=== PATIENT | male | born 1970 | race Caucasian/White ===

== ENCOUNTER 2020-01-23 07:10 | Outpatient (CLI) | payer MEDICARE, OTHER ==
[2020-01-23 14:04] LABS: Hemoglobin 15.7 g/dL (14.0-18.0); Mean Corpuscular HGB CONC 34.1 g/dL (32.0-36.0); Mean Corpuscular Hemoglobin 29.4 pg (27.0-31.0); Mean Corpuscular Volume 86.1 fL (78.0-98.0); Mean Platelet Volume 7.7 fL (7.4-10.4); Platelet Count 177 thou/uL (130-400); RBC Distribution Width 13.5 % (11.5-14.5); Red Blood Cell (RBC) Count 5.33 mill/uL (4.70-6.10)
[2020-01-23 15:14] LABS: Chloride 106 mmol/L (98-107); Potassium 4.3 mmol/L (3.5-5.1); Sodium 141 mmol/L (136-145)
[2020-01-23 15:15] LABS: Calcium 9.2 mg/dL (7.8-10.44); Glucose 100 mg/dL (70-105)
[2020-01-23 15:17] LABS: Anion Gap 18 mmol/L (10-20); Carbon Dioxide 21 mmol/L (22-29)
[2020-01-23 15:18] LABS: Calc. Creatinine Clearance 0 mL/min (70-130); Estimated GFR-MDRD Greater than 90
[2020-01-23 15:19] LABS: BUN (Urea Nitrogen) 14 mg/dL (8.9-20.6)
--- NOTE | 2020-01-23 21:02 | EKG ---
Test Reason : Blood Pressure : / mmHG Vent. Rate : 085 BPM Atrial Rate : 085 BPM P-R Int : 156 ms QRS Dur : 082 ms QT Int : 360 ms P-R-T Axes : 058 011 024 degrees QTc Int : 428 ms Normal sinus rhythm Normal ECG Confirmed by Nina DE LA CRUZ ([id number]) on 01/23/2020 9:02:09 PM Referred By: KALA Confirmed By:Nina DE LA CRUZ
[2020-01-24 12:22] LABS: SARS-CoV-2 MS2 Positive; SARS-CoV-2 N Gene Negative; SARS-CoV-2 S Gene Negative; SARS-CoV-2 by NAA Not Detected (NotDetected); SARS-CoV-2 orf1ab Negative
== END 2020-01-23 07:11 | disposition home or self-care (01) ==
LOC: LABBT 07:10
PROVIDERS: ATTEND Neurological Surgery
DX: Z01.818 Encounter for other preprocedural examination (principal); M43.16 Spondylolisthesis, lumbar region; Z20.828 Contact with and (suspected) exposure to other viral communicable diseases
CPT/HCPCS: 80048; 85027; 93005; U0003; 87635; 93010

== ENCOUNTER 2020-01-28 06:21 | Day surgery (SDC) | payer MEDICARE, OTHER ==
[2020-01-24 10:22] VITALS: BMI 38.6
[2020-01-28] MEDS ORDERED: Midazolam HCl 2 mg/2 ml Vial ONE (07:14)
[2020-01-28] MEDS ORDERED: Famotidine/PF 20 mg/2ml Vial ONE (07:15)
[2020-01-28] MEDS ORDERED: Fentanyl 100 MCG/2 ML VIAL ONE ×4 (08:04→11:10)
[2020-01-28] MEDS ORDERED: Ondansetron PF 4 MG/2 ML Vial ONE (08:50)
[2020-01-28] MEDS ORDERED: PROPOFOL 200 MG/20 ML VIAL ONE (08:50)
[2020-01-28] MEDS ORDERED: Rocuronium Bromide 10 MG/ML (10ML VIAL) ONE (08:50)
[2020-01-28] MEDS ORDERED: Lidocaine 1% PF 5 ML VIAL ONE (08:50)
[2020-01-28] MEDS ORDERED: EPHEDRINE 25 MG/5 ML SYRINGE ONE (08:50)
[2020-01-28] MEDS ORDERED: Ketorolac Tromethamine 30 MG/ML VIAL ONE (08:50)
[2020-01-28] MEDS ORDERED: SUGAMMADEX SODIUM 200 MG/2 ML VIAL ONE (08:58)
[2020-01-28] MEDS ORDERED: Tamsulosin HCl 0.4 MG CAP ONE (10:46)
--- NOTE | 2020-01-28 18:30 | OP ---
DATE OF PROCEDURE: 01/28/2020 CAUSTIC MIXER: Idalmis Mayer PA-C PROCEDURE PERFORMED: Posterior lumbar laminectomy, L5-S1; posterolateral arthrodesis; pedicle screw instrumentation, L5-S1; demineralized bone matrix, local morselized autograft. DESCRIPTION OF PROCEDURE: The patient was brought to the operating room and intubated. He was rolled in a prone position on gel-filled chest rolls. An incision was made exposing L5 and S1 and the level was confirmed by x-ray. Procedure was extremely difficult given the patient's extremely large body habitus. Ultimately, we were able to perform a modest L5-S1 decompression and then placed pedicle screws at L5 and S1 bilaterally. The shelley was secured between the screws and connected by nuts, which were final tightened. The wound was then extensively irrigated and MAC hemostasis was secured. The positioning of the screws was confirmed with rotational x-ray and then shelley was secured between the screws. Distraction was placed at both sides and secured by nuts. Next, the posterolateral surfaces were prepared for the purpose of arthrodesis and a combination of demineralized bone matrix and local morselized autograft was laid over the lamina and posterolateral surfaces for the purpose of arthrodesis. The wound was then extensively irrigated and MAC hemostasis was secured. Vancomycin powder was applied and the wound was then closed in anatomic layers. Job ID: [id number]
== END 2020-01-28 12:33 | disposition home or self-care (01) ==
LOC: SDC 06:21
PROVIDERS: ATTEND Neurological Surgery
PROC: 0SG30J1 Fusion of Lumbosacral Joint with Synthetic Substitute, Posterior Approach, Posterior Column, Open Approach (ICD-10-PCS; principal; 2020-01-28)
DX: M43.17 Spondylolisthesis, lumbosacral region (principal); M48.061 Spinal stenosis, lumbar region without neurogenic claudication; E11.9 Type 2 diabetes mellitus without complications; I10 Essential (primary) hypertension; E78.5 Hyperlipidemia, unspecified; F43.10 Post-traumatic stress disorder, unspecified; J45.909 Unspecified asthma, uncomplicated; G47.30 Sleep apnea, unspecified; F32.9 Major depressive disorder, single episode, unspecified; F41.9 Anxiety disorder, unspecified; Z87.891 Personal history of nicotine dependence; Z79.4 Long term (current) use of insulin; Z79.899 Other long term (current) drug therapy
CPT/HCPCS: 36416; 76000; C1713; C1768; J0690; J1885; J2250; J2405; J2704; J3010; J3370; S0028

== ENCOUNTER 2020-02-12 12:35 | Outpatient (CLI) | payer MEDICARE, OTHER ==
--- NOTE | 2020-02-12 13:09 | RAD ---
2 views of the lumbar spine: 02/12/2020 COMPARISON: None HISTORY: Spondylolisthesis, prior lumbar spine surgery FINDINGS: Anterolisthesis at the L5-S1 level noted, measuring 1.5 cm. Bilateral L5 and S1 pedicle scr ews are present with vertically oriented interlocking rods. Partially visualized bilateral hip arthroplasties. Minimal retrolisthesis noted at L4-5 measuring 4 mm. Multilevel lower lumbar spine fa cet hypertrophy present. Disc space narrowing with anterior osteophyte formation noted at T12-L1. IMPRESSION: Postoperative and degenerative changes within the lumbar spine as detailed above.
== END 2020-02-12 12:36 | disposition home or self-care (01) ==
LOC: TBSIIMAG 12:35
PROVIDERS: ATTEND Neurological Surgery
DX: M43.16 Spondylolisthesis, lumbar region (principal); M47.816 Spondylosis without myelopathy or radiculopathy, lumbar region; Z98.890 Other specified postprocedural states
CPT/HCPCS: 72100